=== PATIENT | female | born 1995 | race Caucasian/White ===

== ENCOUNTER 2019-06-20 11:12 | Emergency (ER) | payer OTHER ==
[~2019-06-20] VITALS: Ht 167.6 cm; Wt 61.1 kg
[2019-06-20] MEDS ORDERED: PREN1CHW4 PO (11:21)
[2019-06-20 12:38] LABS: BASO % 0.6 % (0.0-1.0); EOS # 0.1 10^3/uL (0.0-0.5); EOS % 0.7 % (0.0-3.0); HEMATOCRIT 36.5 % (36.0-47.0); HEMOGLOBIN 12.4 g/dl (12.0-15.5); LYMPH # 1.3 10^3/uL (1.5-5.0); LYMPH % 19.4 % (24.0-44.0); MEAN CORPUSCULAR HEMOGLOBIN 31.1 pg (27.0-33.0); MEAN CORPUSCULAR VOLUME 91.5 fl (80.0-96.0); MONO # 0.4 10^3/uL (0.0-0.8); MONO % 5.2 % (0.0-5.0); NEUTROPHILS # 4.9 10^3/uL (1.5-8.5); NEUTROPHILS % 73.7 % (36.0-66.0); PLATELET COUNT, AUTOMATED 174 10^3/uL (150-450); RED BLOOD COUNT 3.99 10^6/uL (4.00-5.40); WHITE BLOOD COUNT 6.7 10^3/uL (4.0-10.0)
[2019-06-20 13:07] LABS: HCG, SERUM QUALITATIVE POSITIVE (NEGATIVE)
[2019-06-20 13:16] LABS: BLOOD UREA NITROGEN 7 MG/DL (7-18); CARBON DIOXIDE LEVEL 22 MEQ/L (21-32); CHLORIDE LEVEL 108 MEQ/L (98-107); CREATININE FOR GFR 0.61 MG/DL (0.55-1.30); FREE T4 1.17 NG/DL (0.76-1.46); GLOMERULAR FILTRATION RATE > 60.0 (>60); GLUCOSE, FASTING 80 MG/DL (70-100); POTASSIUM SERUM 3.8 MEQ/L (3.5-5.1); SODIUM LEVEL 137 MEQ/L (136-145)
[2019-06-20 14:19] VITALS: BP 126/73
--- NOTE | 2019-06-20 14:35 | REP ---
REASON: Supervision of normal . Transvesical imaging was obtained. Within the uterus there is an anechoic structure with increased echoes surrounding it consistent with a decidual reaction. Within the gestational sac, there is echogenic material consistent with a pole with a mean crown-rump length measurement of which is consistent with a 4-naqg-2-day gestational age. Based on that, the estimated date of delivery is 01/23/2020. Doppler interrogation of the heart shows a heart rate of 170 beats per minute. No chorionic or subchorionic abnormality was noted. Evaluation of the maternal adnexal space showed no abnormalities. IMPRESSION: Early OB ultrasound as described above. Electronically Signed by Cb Sosa DO 06/20/2019 03:24 P
--- NOTE | 2019-06-21 16:35 | ECGEPIP ---
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 Order Number: [id number] Reading MD: Priyanka Goss Measurements Intervals [place] Rate: 98 P: 71 VA: 141 QRS: 50 QRSD: 90 T: 22 QT: 341 QTc: 436 Interpretive Statements SINUS RHYTHM NO PRIOR Electronically Signed on 06-21-2019 16:35:36 EDT by Priyanka Goss
== END 2019-06-20 14:22 | disposition home or self-care (01) ==
LOC: M ED 11:12
DX: O26.891 Other specified pregnancy related conditions, first trimester (principal); R11.0 Nausea; R00.2 Palpitations; Z3A.09 9 weeks gestation of pregnancy; Z79.899 Other long term (current) drug therapy

== ENCOUNTER 2019-12-06 20:34 | Outpatient (CLI) | payer OTHER ==
[~2019-12-06] VITALS: Ht 167.6 cm; Wt 64.6 kg
[~2019-12-06 20:34] MED LIST: PREN1CHW4 PO
[2019-12-06 20:55] VITALS: BP 122/72
[2019-12-06 21:33] LABS: HEMATOCRIT 33.5 % (36.0-47.0); HEMOGLOBIN 11.2 g/dl (12.0-15.5); MEAN CORPUSCULAR HEMOGLOBIN 31.3 pg (27.0-33.0); MEAN CORPUSCULAR HGB CONC 33.4 g/dl (32.0-36.5); MEAN CORPUSCULAR VOLUME 93.6 fl (80.0-96.0); PLATELET COUNT, AUTOMATED 177 10^3/uL (150-450); RED BLOOD COUNT 3.58 10^6/uL (4.00-5.40); WHITE BLOOD COUNT 9.1 10^3/uL (4.0-10.0)
--- NOTE | 2019-12-07 09:14 | HPE ---
DATE OF ADMISSION: 12/06/2019 This lady is a 24-year-old, 1, para 0, last menstrual period (LMP) 04/16/2019, estimated date of confinement (EDC) 01/21/2020 at 33 and 4 weeks of gestation, had a fall over her dog at 1730 hours, has had decreased movement over the last 3 hours, no vaginal loss or bleeding, the occasional cramp. Blood pressure 122/72, respirations 18, pulse 83, temperature is 98.2. Kleihauer-Betke is negative. Hemoglobin 11.2, hematocrit 33.5, and platelets were 177. No urine is available. LABORATORIES: A positive, HIV negative, hepatitis negative, RPR negative, Rubella immune, Varicella immune, Pap normal, urine negative, gonorrhea and chlamydia are negative, 1-hour glucose was 85, and cystic fibrosis was negative. EXAMINATION: No distress. Symphysis fundus height is 34. Vertex, occiput anterior (OA), no vaginal loss or bleeding. Four quadrant bowel sounds are noted. No bruising was noted. Category 1 strip. Patient was discharged undelivered with precautions. Has an appointment 12/26/2019 at [facility]. It is safe to proceed. [facility]
== END 2019-12-06 22:35 | disposition home or self-care (01) ==
LOC: M LDO 20:34
PROVIDERS: ATTEND Obstetrics & Gynecology
DX: O99.891 Other specified diseases and conditions complicating pregnancy (principal); W01.0XXA Fall on same level from slipping, tripping and stumbling without subsequent striking against object, initial encounter; Z3A.33 33 weeks gestation of pregnancy
CPT/HCPCS: 36415; 59025; 85027; 85460; G0378; G0463

== ENCOUNTER 2020-01-17 22:26 | Outpatient (CLI) | payer OTHER ==
[~2020-01-17] VITALS: Ht 167.6 cm; Wt 68.9 kg
[2020-01-17 22:49] VITALS: BP 122/73
--- NOTE | 2020-01-17 23:41 | IPNPDOC ---
Text Note Date of Service The patient was seen on 01/17/20. NOTE 25 yo at 39+3 weeks presents to L&D with the complaint of persistent contractions that have been happening since she had her membranes stripped yesterday in the office. She denies any leakage of fluid or significant bleeding. She endorses movement. is uncomplicated. Chaperoned by L&D RN Vitals - VSS, afebrile, normotensive, non tachycardic General - AAOX3, laying in bed, NAD, pleasant and conversant Abdomen - Soft Cervix - 2/75/-2, posterior FHR tracing: Cat I with moderate variability, +accels, no decels Patient not in active labor. Exam unchanged from office exam. Reassuring status. Discharged home with return precautions. DO Joaquin VS,Tangela, I+O VS, Tangela, I+O Vital Signs Date Time Temp Pulse Resp B/P (MAP) Pulse Ox O2 Delivery O2 Flow Rate FiO2 01/17/20 22:49 98.5 86 18 122/73 (89) 98 Room Air ARIELLE HAUSER DO Jan 17, 2020 23:41
== END 2020-01-17 23:45 | disposition home or self-care (01) ==
LOC: M LDO 22:26
PROVIDERS: ATTEND Obstetrics & Gynecology
DX: O47.1 False labor at or after 37 completed weeks of gestation (principal); Z3A.39 39 weeks gestation of pregnancy
CPT/HCPCS: 59025; G0378; G0463

== ENCOUNTER 2020-01-18 05:50 | Inpatient (IN) | payer OTHER ==
[2020-01-18] VITALS (40 sets, daily range): BP systolic 104–131; BP diastolic 56–79
[~2020-01-18] VITALS: Ht 167.6 cm; Wt 68.9 kg
[2020-01-18] MEDS ORDERED: LACTATED RINGER'S 1000 ML IV STA (06:12)
[2020-01-18] MEDS ORDERED: FENTANYL 2MCG/ML ROPIVACAINE 0.2% IN 0.9% NACL 100ML IVBAG As Ordered ONE (06:47)
[2020-01-18 07:02] LABS: BASO % 0.3 % (0.0-1.0); EOS % 0.1 % (0.0-3.0); HEMATOCRIT 35.8 % (36.0-47.0); HEMOGLOBIN 12.1 g/dl (12.0-15.5); LYMPH # 1.3 10^3/uL (1.5-5.0); LYMPH % 9.3 % (24.0-44.0); MEAN CORPUSCULAR HGB CONC 33.8 g/dl (32.0-36.5); MEAN CORPUSCULAR VOLUME 91.8 fl (80.0-96.0); MONO # 0.7 10^3/uL (0.0-0.8); NEUTROPHILS % 84.7 % (36.0-66.0); PLATELET COUNT, AUTOMATED 150 10^3/uL (150-450); WHITE BLOOD COUNT 14.1 10^3/uL (4.0-10.0)
[2020-01-18] MEDS: LR 1,000 ML IV SCH ×3 (07:35→11:29)
[2020-01-18] MEDS ORDERED: ePHEDrine SULFATE 25 MG/5 ML(5MG/ML) SYRINGE As Ordered ONE (08:37)
[2020-01-18] MEDS: ePHEDrine SULFATE 25 MG/5 ML(5MG/ML) SYRINGE IV PRN ×3 (08:39→08:49)
--- NOTE | 2020-01-18 08:43 | HPEPDOC ---
Obstetrical History & Physical General Date of Admission Jan 18, 2020 at 06:13 History of Present Illness 25 yo at 39+4 weeks gestation by LMP of [id number] c/w 9+0 week US on 20Jun2019 presented to L&D in active labor. is uncomplicated. 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 History: No pertinent history Past Medical History Medical History Denies Surgical History: Denies/None Family History Significant Family History: No pertinent family hx Social History Marital Status: Family situation: Spouse/partner home Psychosocial History: No pertinent psych hx * Smoker: non-smoker Alcohol: Denies Drugs: denies Abuse Violence Screening Have you been hit/kicked/slapp: No Have you been sexually assault: No Imunizations Tdap status: current Influenza Status: declined Allergies Coded Allergies: No Known Allergies (Unverified , 06/20/19) Medications Miscellaneous Medications Pnv No.103/Folic/Om3s/Fish Oil ( Gummies) 1 Each Tab.chew, 1 CHW PO Physical Examination Physical Examination GENERAL: Alert and oriented times three. ABDOMEN: Gravid and non-tender to touch. FETUS: Is vertex (VTX) by sterile vaginal examination (SVE), fetus is vertex (VTX) by Duc. EXTREMITIES: No edema. Vital Signs/I&O Vital Signs Date Time Temp Pulse Resp B/P (MAP) Pulse Ox O2 Delivery O2 Flow Rate FiO2 01/18/20 07:04 98.0 90 20 104/63 (77) 100 Room Air Laboratory Data 24H LABS Laboratory Tests 2 01/18/20 06:24: Serology Scanned Report Hepatitis B Testing 01/18/20 06:30: 01/18/20 06:50: Immature Granulocyte % (Auto) 0.6, Neutrophils (%) (Auto) 84.7H, Lymphocytes (%) (Auto) 9.3L, Monocytes (%) (Auto) 5.0, Eosinophils (%) (Auto) 0.1, Basophils (%) (Auto) 0.3, Neutrophils # (Auto) 12.0H, Lymphocytes # (Auto) 1.3L, Monocytes # (Auto) 0.7, Eosinophils # (Auto) 0.0, Basophils # (Auto) 0.0, Nucleated Red Blood Cells % (auto) 0.0 CBC/BMP Laboratory Tests 01/18/20 06:50 Urine Culture: No Growth Pertinent Laboratoy Data Blood Type: A+ RBC Antibody Screen: Negative HIV: Negative Hepatitis B: Negative Hepatitis C: Unknown Rapid Plasma Reagin: Nonreactive Rubella: Immune Varicella: Immune Chlamydia/Gonorrhea: Negative Group B Streptococcus: Negative Quad Screen Test: Negative Cystic Fibrosis: Negative Glucose Tolerance Test: 85 Anatomy Ultrasound Placenta Location: Anterior Normal Anatomy: Yes (EIF ) Placenta Previa: No Vaginal Examination Dilation: 6 cm Effacement: 90% Station: -1 Cervical Consistency: Soft Cervical Position: Middle Presentation: Cephalic presentation Position: Vertex (occiput) Assessment Heart Rate (FHR): 140 Variability: Moderate Accelerations: Positive Decelerations: None Tocometer Contractions: Yes Frequency: regular Duration: greater than 60 seconds Strength: palpated as strong Assessment/Plan Assessment 25 yo at 39+4 weeks today presented to L&D in active labor. Uncomplicated . Plan Admit for expectant management of labor. Augment as clinically indicated. Apply IV fluids. GBS negative. Epidural if and when patient desires. Clear liquid diet. Anticipate . DO MURTAZA Marlow CHRISTOPHER J. DO Jan 18, 2020 08:43
[2020-01-18] MEDS ORDERED: ONDANSETRON 4MG/2ML VIAL IV PRN (10:15)
[2020-01-18] MEDS ORDERED: EPIDURAL COMMENT XX SCH (10:15)
[2020-01-18] MEDS ORDERED: LACTATED RINGER'S 1000 ML IV PRN (10:15)
[2020-01-18] MEDS ORDERED: EPIDURAL/PCA KEYS XX PRN (10:15)
[2020-01-18] MEDS ORDERED: NALOXONE INJ 0.4MG/1ML VIAL (J2310 PER 1MG) IV PRN (10:15)
[2020-01-18] MEDS ORDERED: diphenhydrAMINE 50MG/ML VIAL (J1200) IV PRN (10:15)
[2020-01-18] MEDS ORDERED: FENTANYL/ROPIVACAINE/NACL BAG 100 ML EPIDURAL SCH (10:15)
[2020-01-18] MEDS ORDERED: REFRIGERATOR IV KEYS XX PRN (10:15)
--- NOTE | 2020-01-18 10:22 | IPNPDOC ---
Obstetrical Progress Note Date of Service Jan 18, 2020 Subjective 25yo at 39+4wks admitted for labor. Patient now resting comfortably after epidural placement. Denies any complaints at this time. Objective Vital Signs Date Time Temp Pulse Resp B/P (MAP) Pulse Ox O2 Delivery O2 Flow Rate FiO2 01/18/20 07:04 98.0 90 20 104/63 (77) 100 Room Air Assessment Heart Rate Tracing: Category I Tocometer Contractions: Yes Sterile Vaginal Examination Dilation: 7 cm Effacement (%): 100% Station: 0 Cervical Consistency: Soft Cervical Position: Anterior Postion/Presentation: Cephalic presentation Assessment and Plan Status: Reassuring Group B Streptococcus: Negative Anticipate: Vaginal Delivery Additional Comments Patient has progressed to 7/c/0 on maternal effort alone. FHRT cat I. AROM performed with patient consent notable for clear fluid. Plan for expectant . BRAXTON CAMPBELL DO Jan 18, 2020 10:22
[2020-01-18] MEDS ORDERED: OXYTOCIN 30 UNITS IN 0.9% NaCl 500ML IV BAG (J2590) As Ordered ONE (11:54)
--- NOTE | 2020-01-18 12:37 | IPNPDOC ---
Obstetrical Progress Note Date of Service Jan 18, 2020 Objective Vital Signs Date Time Temp Pulse Resp B/P (MAP) Pulse Ox O2 Delivery O2 Flow Rate FiO2 01/18/20 11:45 100 Room Air 01/18/20 11:39 98.2 100 16 123/64 (83) Assessment Heart Rate Tracing: Category I Sterile Vaginal Examination Dilation: 9 cm Effacement (%): 100% Station: +1 Cervical Consistency: Soft Cervical Position: Anterior Postion/Presentation: Cephalic presentation Assessment and Plan Status: Reassuring Group B Streptococcus: Negative Anticipate: Vaginal Delivery Additional Comments RN reports SVE now 9/c/+1. Patient making spontaneous cervical change. FHRT cat I. Will continue expectant mgmt in anticipation of . BRAXTON CAMPBELL DO Jan 18, 2020 12:37
--- NOTE | 2020-01-18 15:04 | DNPDOC ---
[facility] Delivery Note Delivery Note DATE OF DELIVERY: 01/18/2020 PREDELIVERY DIAGNOSIS: 39+4/7 weeks' gestation and labor. POST DELIVERY DIAGNOSIS: Delivered. PROCEDURE: Spontaneous vaginal delivery ENGINE REPAIRER SERVICE: Dr. Braxton Campbell ANESTHESIA: Epidural. ESTIMATED BLOOD LOSS: 100 mL. FINDINGS: 6 pound 13 ounce 3080g male , Score 9/10, no nuchal cord, terminal meconium noted DELIVERY SUMMARY: Patient found to be c/c/+3. Patient prepped for delivery. With good maternal effort, spontaneous vaginal delivery of a viable term male . Presentation was LEYLA with restitution to LOT with right shoulder anterior position. Anterior shoulder and body delivered without difficulty. No nuchal cord. Terminal meconium appreciated. Pitocin IV bolus initiated. with spontaneous cry on delivery field therefore placed on maternal abdomen and care transferred to Team. Inspection revealed a small left vaginal sulcal that was repaired with 2-0 vicryl in running, locking fashion with hemostasis achieved. Right labial abrasion noted that was hemostatic and not repaired. After 7 minutes of delayed cord clamping, three vessel cord clamped x2 and cut by FOB. Third stage spontaneous with intact placenta. Fundal massage revealed firm uterine tone and hemostasis. EBL 100ml. Mother and infant stable and bonding upon my leaving the room. BRAXTON CAMPBELL DO Jan 18, 2020 15:04
[2020-01-19 06:00] VITALS: BP 105/60
[2020-01-19] MEDS: LR 1,000 ML IV SCH (07:45)
--- NOTE | 2020-01-19 09:26 | IPNPDOC ---
Progress Note Date of Service: Jan 19, 2020 Day#: 1 Progress Note SUBJECT: Cait is a 25-year-old 1 now Para 0 status post uncomplicated spontaneous vaginal delivery at 39-4/7 weeks' on 18Jan2020, doing well day # 1. She has been ambulating, voiding spontaneously without issue and tolerating regular diet. Breast feeding without issue. Reports lochia is normal. Patient is ambulating well. Reports some cramping. Denies any pain. Voiding and stooling without difficulty. OBJECTIVE: VITAL SIGNS: Within normal limits, afebrile. Alert and oriented times three. Breath sounds clear to auscultation. Heart rate: Regular rate and rhythm, no murmurs, rubs or gallops. Breasts are soft, non tender. Abdomen: Fundus firm at U-2. Soft, NTTP. Small lochia. ASSESSMENT: Cait is a 25-year-old 1 now Para 0 status post uncomplicated spontaneous vaginal delivery after presenting in active labor, doing well on day 1. Vitals within normal limits, afebrile, hemodynamically stable with no evidence of infection. Patient expressed plan to exclusively bottle feed and attempt to express breast milk in contrast to previous stated plan for exclusive formula feeding. Extensive education provided on normal expectations for expression of breast milk, volumes of colostrum and milk, options for expression in the hospital and benefits of skin to skin, normal cramping with breast stimulation, with e xpressed understanding of all instructions PLAN: 1. Tylenol and Motrin for pain. 2. Encourage breast feeding and ambulation. VS, I&O, 24H, Fishbone Vital Signs/I&O Vital Signs Date Time Temp Pulse Resp B/P (MAP) Pulse Ox O2 Delivery O2 Flow Rate FiO2 01/19/20 06:00 97.0 86 14 105/60 (75) 01/18/20 17:30 98 Room Air I&O- Last 24 Hours up to 6 AM 01/19/20 06:00 Intake Total 3680 ml Output Total 1550 ml Balance 2130 ml ISHMAEL VENEGAS CNM Jan 19, 2020 09:26
[2020-01-19 18:00] VITALS: BP 118/70
[2020-01-20 06:24] VITALS: BP 122/70
[2020-01-20 08:45] VITALS: BP 122/70
--- NOTE | 2020-01-20 08:49 | IPNPDOC ---
Progress Note Date of Service: Jan 20, 2020 Day#: 2 Progress Note SUBJECT: Cait is a 25yo s/p doing well day # 1. She has b een ambulating, voiding spontaneously without issue and tolerating regular diet. She is with pumping and supplementing with formula. Reports lochia is decreasing. OBJECTIVE: VITAL SIGNS: Within normal limits, afebrile. Alert and oriented times three. Abdomen: Fundus firm at U-2. Soft, NTTP. : scant lochia, mild edema ASSESSMENT: Cait is a 25yo s/p doing well day # 1. Vitals within normal limits, afebrile, hemodynamically stable with no evidence of infection. PLAN: 1. Discharge to home today. 2. Tylenol and Motrin for pain. 3. Encourage breast feeding as patient desires and ambulation. 4. Encourage regular diet and PO hydration 5. Routine PP visit in 6 weeks in clinic. 6. Discussed return precautions at length. VS, I&O, 24H, Fishbone Vital Signs/I&O Vital Signs Date Time Temp Pulse Resp B/P (MAP) Pulse Ox O2 Delivery O2 Flow Rate FiO2 01/20/20 06:24 97.6 74 18 122/70 (87) 01/19/20 18:00 100 Room Air BRAXTON CAMPBELL DO Jan 20, 2020 08:49
== END 2020-01-20 11:30 | disposition home or self-care (01) | DRG 807 ==
LOC: M LDO 05:50 → M LDI 06:13 → M OBS 17:10
PROVIDERS: ADMIT Obstetrics & Gynecology
PROC: 10E0XZZ Delivery of Products of Conception, External Approach (ICD-10-PCS; principal; 2020-01-18)
PROC: 0HQ9XZZ Repair Perineum Skin, External Approach (ICD-10-PCS; 2020-01-18)
PROC: 10907ZC Drainage of Amniotic Fluid, Therapeutic from Products of Conception, Via Natural or Artificial Opening (ICD-10-PCS; 2020-01-18)
DX: O70.0 First degree perineal laceration during delivery (principal); Z37.0 Single live birth; Z3A.39 39 weeks gestation of pregnancy

== ENCOUNTER → 2020-11-27 | Outpatient (CLI) | payer OTHER ==
--- NOTE | 2020-11-28 08:12 | REP ---
INDICATION: PREG, ANATOMY COMPARISON: None. TECHNIQUE: Transabdominal obstetrical ultrasound with color Doppler evaluation. FINDINGS: Examination demonstrates a single live intrauterine in variable anterior presentation. motion is identified by technologist. Placenta is noted and grade 1 without evidence for placenta previa or abruption. Amniotic fluid volume is normal. Cervix measures 3.6 cm in length and appears closed.. Selected gestational age: 21 weeks 0 days with MICHAEL 04/09/2021. Gestational age by current measurements 21 weeks 1 day with MICHAEL 04/08/2021. FHR equals 156 beats per minute. BPD: 5.0 cm at 21 weeks 1 day HC: 18.8 cm at 21 weeks 0 days AC: 16.1 cm at 21 weeks 1 day FL: 3.5 cm at 20 weeks 6 days HL: 3.3 cm at 21 weeks 2 days HC/AC: 1.17 Estimated weight 396 grams (46thpercentile). Anatomical assessment demonstrates normal structures including cranium, choroid plexus, cavum, cerebellum/posterior fossa, facial features, lungs, four-chamber heart/ventricular outflow tracts, diaphragm, stomach, cord insertion/three-vessel cord, kidneys/bladder, spine, and extremities. Trace amount of pericardial fluid is identified and within normal range. IMPRESSION: Single live intrauterine in variable presentation demonstrating appropriate estimated weight and growth. Anatomical assessment essentially normal as described above. <Electronically signed by Bert Zavala > 11/28/20 [id number]
== END ==
LOC: M RAD 15:10
PROVIDERS: ATTEND Registered Nurse
DX: Z36.89 Encounter for other specified antenatal screening (principal); Z3A.19 19 weeks gestation of pregnancy

== ENCOUNTER 2021-03-29 05:14 | Inpatient (IN) | payer OTHER ==
[2021-03-29] VITALS (7 sets, daily range): BP systolic 112–132; BP diastolic 70–88
[~2021-03-29] VITALS: Ht 170.2 cm; Wt 71.4 kg
[2021-03-29] MEDS ORDERED: OXYTOCIN 30 UNITS IN 0.9% NaCl 500ML IV BAG (J2590) As Ordered ONE (05:18)
[2021-03-29] MEDS ORDERED: OXYTOCIN INJ 10 UNITS/ML VIAL (J2590) As Ordered ONE (05:28)
[2021-03-29] MEDS ORDERED: OXYTOCIN DRIP 30 UNITS in IV 1 EA IV ONE (05:50)
[2021-03-29] MEDS ORDERED: LR 1,000 ML IV SCH ×2 (05:50→05:55)
[2021-03-29] MEDS ORDERED: OXYTOCIN INJ 10 UNITS/ML VIAL (J2590) IV PRN (05:50)
[2021-03-29] MEDS ORDERED: DOCUSATE SODIUM 100MG CAPSULE PO PRN (05:55)
[2021-03-29] MEDS ORDERED: OXYTOCIN DRIP 30 UNITS in IV 1 EA IV SCH (05:55)
[2021-03-29] MEDS ORDERED: ACETAMINOPHEN TAB 650MG DOSE (2X325MG) PO PRN (05:55)
[2021-03-29] MEDS ORDERED: RHOGAM 300 MCG (1500 IU) INJ (J2790) IM SCH (05:55)
[2021-03-29] MEDS ORDERED: ANUSOL HC CREAM 30GM TOP PRN (05:55)
[2021-03-29] MEDS ORDERED: DIBUCAINE 1% OINTMENT 30GM TOP PRN (05:55)
[2021-03-29] MEDS ORDERED: METHYLERGONOVINE MALEATE 0.2 MG TAB PO PRN (05:55)
[2021-03-29] MEDS ORDERED: MOM 30ML SUSPENSION UDC PO PRN (05:55)
[2021-03-29] MEDS ORDERED: IBUPROFEN 600MG TAB PO PRN (05:55)
[2021-03-29] MEDS ORDERED: MEASLES,MUMPS,RUBELLA VACCINE INJ (MMR-II) (90707) SC SCH (05:55)
[2021-03-29] MEDS ORDERED: ACETAMINOPHEN 500 MG TAB PO PRN (05:55)
[2021-03-29 06:25] LABS: HEMATOCRIT 37.7 % (36.0-47.0); HEMOGLOBIN 12.7 g/dl (12.0-15.5); MEAN CORPUSCULAR HEMOGLOBIN 32.2 pg (27.0-33.0); MEAN CORPUSCULAR HGB CONC 33.7 g/dl (32.0-36.5); MEAN CORPUSCULAR VOLUME 95.7 fl (80.0-96.0); PLATELET COUNT, AUTOMATED 148 10^3/uL (150-450); RED BLOOD COUNT 3.94 10^6/uL (4.00-5.40); WHITE BLOOD COUNT 9.2 10^3/uL (4.0-10.0)
[2021-03-29] MEDS ORDERED: HOME MED LIST COMPLETE! XX SCH (06:40)
[2021-03-29] MEDS: PRENATAL VITAMINS CHEWABLE TABLET PO SCH (09:10)
[2021-03-30 06:00] VITALS: BP 119/60
[2021-03-30] MEDS: PRENATAL VITAMINS CHEWABLE TABLET PO SCH (08:11)
[2021-03-30] MEDS ORDERED: ACET1TAB55 PO (17:13)
[2021-03-30] MEDS ORDERED: IBUP-1022 PO (17:13)
== END 2021-03-30 18:02 | disposition home or self-care (01) | DRG 769 ==
LOC: M LDI 05:14 → M OBS 08:49
PROVIDERS: ADMIT Obstetrics & Gynecology; ATTEND Obstetrics & Gynecology
PROC: 10D17ZZ Extraction of Products of Conception, Retained, Via Natural or Artificial Opening (ICD-10-PCS; principal; 2021-03-30)
DX: O73.0 Retained placenta without hemorrhage (principal); Z3A.38 38 weeks gestation of pregnancy